=== PATIENT | female | born 1980 | race Caucasian/White ===

== ENCOUNTER 2018-03-10 08:33 | Inpatient (IN) | payer BC ==
[2018-03-10] MEDS ORDERED: HEPARIN SODIUM,PORCINE 5,000 UNIT/ML 1 ML VIAL IV ONE (08:36)
[2018-03-10] MEDS ORDERED: NITROGLYCERIN SL TABS 0.4 MG TAB SUBLINGUAL STA (08:36)
[2018-03-10] MEDS ORDERED: SODIUM CHLORIDE 0.9% 500 ML 500 ML IV STA (08:36)
[2018-03-10] MEDS: ATORVASTATIN 80 MG TAB PO STA ×2 (08:42→08:43)
--- NOTE | 2018-03-10 08:43 | ED ---
General Adult HPI - General Stated complaint: stemi Time Seen by Provider: 03/10/18 08:33 Source: RN notes reviewed - History of Present Illness Initial comments: This is a 37-year-old female with past medical history significant for smoking. Patient also has a history of family members who have heart disease. Patient states about 7:15 this morning she started having chest pain which radiated down both arms. Patient states she was mildly short of breath but very nauseated. Patient states she did vomit. Patient states the nitroglycerin seemed to help a little bit with the chest pain but not with the arm pain. Patient states the chest pain however is starting to come back. Patient continues to be nauseated even though she had received Zofran in route. Patient also received aspirin and nitroglycerin in route. Patient denies any similar symptoms in the past. Patient denies any abdominal pain. Patient denies any recent fever chills or cough. Patient denies any recent injury or trauma. - Related Data Allergies Allergy/AdvReac Type Severity Reaction Status Date / Time No Known Allergies Allergy Verified 03/10/18 08:39 Review of Systems ROS Statement: Those systems with pertinent positive or pertinent negative responses have been documented in the HPI. ROS Other: All systems not noted in ROS Statement are negative. General Exam - General Exam Comments Initial Comments: GENERAL: Patient is well-developed and well-nourished. Patient is nontoxic and well- hydrated and is in mild distress. ENT: Neck is soft and supple. No significant lymphadenopathy is noted. Oropharynx is clear. Moist mucous membranes. Neck has full range of motion without eliciting any pain. EYES: The sclera were anicteric and conjunctiva were pink and moist. Extraocular movements were intact and pupils were equal round and reactive to light. Eyelids were unremarkable. PULMONARY: Unlabored respirations. Good breath sounds bilaterally. No audible rales rhonchi or wheezing was noted. CARDIOVASCULAR: There is a regular rate and rhythm without any murmurs gallops or rubs. ABDOMEN: Soft and nontender with normal bowel sounds. No palpable organomegaly was noted. There is no palpable pulsatile mass. SKIN: Skin is clear with no lesions or rashes and otherwise unremarkable. NEUROLOGIC: Patient is alert and oriented x3. Cranial nerves II through XII are grossly intact. Motor and sensory are also intact. Normal speech, volume and content. Symmetrical smile. MUSCULOSKELETAL: Normal extremities with adequate strength and full range of motion. No lower extremity swelling or edema. No calf tenderness. LYMPHATICS: No significant lymphadenopathy is noted PSYCHIATRIC: Normal psychiatric evaluation. Course Vital Signs 03/10/18 03/10/18 08:35 08:45 Pulse Rate 68 70 Respiratory 24 22 Rate Blood Pressure 146/88 125/112 O2 Sat by Pulse 97 99 Oximetry Medical Decision Making - Medical Decision Making Prior to the patient's arrival we spoke with EMS on 2 occasions and they did transmit an EKG was which I sent up to Corinne the nurse practitioner. EKG shows normal sinus rhythm at 64 bpm PA interval 160 QRS is 76 QT interval 410 QTC is 422 per patient's EKG shows ST segment elevation in leads V2 through V6 as well as inferior leads II, III, and F aVF. Family called this a STEMI overhead Dr. Chavez showed up at bedside within 5 minutes and the patient was being prepped to go to the catheterization lab. Patient received nitroglycerin in the emergency department as well as Lipitor and heparin bolus. Critical Care Time Critical Care Time: Yes Total Critical Care Time: 30 Disposition Clinical Impression: ST elevation myocardial infarction (STEMI) Disposition: ADMITTED IP TO THIS HOSP Referrals: Nonstaff,Physician [Primary Care Provider] - 1-2 days Time of Disposition: 08:43
[2018-03-10] MEDS ORDERED: fentaNYL (PF) 50 MCG/ML 2 ML AMP ONE ×2 (08:55→09:20)
--- NOTE | 2018-03-10 08:57 | XR ---
EXAMINATION TYPE: XR chest 1V portable DATE OF EXAM: 03/10/2018 COMPARISON: NONE HISTORY: Chest pain TECHNIQUE: Single frontal view of the chest is obtained. FINDINGS: There is no focal air space opacity, pleural effusion, or pneumothorax seen. The cardiac silhouette size is within normal limits. The osseous structures are intact. IMPRESSION: No acute process.
[2018-03-10] MEDS ORDERED: IV FLUID CONTINUATION 1,000 ML IV ONE (08:59)
[2018-03-10] MEDS ORDERED: MIDAZOLAM 2 MG/2 ML VIAL IVP ONE ×2 (09:03→09:21)
[2018-03-10] MEDS ORDERED: LIDOCAINE 1% (PF) 10MG/ML VIAL SQ ONE ×2 (09:03→09:04)
[2018-03-10] MEDS: fentaNYL (PF) 50 MCG/ML 2 ML AMP IVP ONE ×2 (09:03→09:06)
[2018-03-10 09:04] LABS: Basophils # (A) 0.1 k/uL (0-0.2); Basophils % (A) 1 %; Eosinophils # (A) 0.7 k/uL (0-0.7); Eosinophils % (A) 5 %; HCT 35.8 % (34.0-46.0); HGB 11.4 gm/dL (11.4-16.0); Lymphocytes # (A) 3.8 k/uL (1.0-4.8); Lymphocytes % (A) 26 %; MCH 20.9 pg (25.0-35.0); MCHC 31.9 g/dL (31.0-37.0); MCV 65.6 fL (80.0-100.0); Mean Platelet Volume 6.9; Microcytosis Marked; Monocytes # (A) 0.4 k/uL (0-1.0); Monocytes % (A) 3 %; Neutrophils # (A) 9.3 k/uL (1.3-7.7); Neutrophils % (A) 64 %; Platelet Count 355 k/uL (150-450); RBC 5.46 m/uL (3.80-5.40); RDW 14.4 % (11.5-15.5); WBC 14.5 k/uL (3.8-10.6)
[2018-03-10] MEDS ORDERED: FUROSEMIDE 10 MG/ML 4 ML VIAL ONE (09:04)
[2018-03-10] MEDS ORDERED: FUROSEMIDE 10 MG/ML 4 ML VIAL IV ONE (09:05)
[2018-03-10] MEDS ORDERED: BIVALIRUDIN 250 MG in SODIUM CHLORIDE 0.9% 39 ML IV ONE (09:06)
[2018-03-10] MEDS ORDERED: BIVALIRUDIN BOLUS 250 MG/50 ML IV ONE (09:06)
[2018-03-10 09:13] LABS: INR 0.9 (<1.2); Prothrombin Time 9.8 sec (9.0-12.0)
[2018-03-10] MEDS ORDERED: niCARdipine 25 MG/10 ML VIAL ONE (09:16)
[2018-03-10 09:17] LABS: ALT 24 U/L (9-52); AST 18 U/L (14-36); Albumin 3.9 g/dL (3.5-5.0); Alkaline Phosphatase 56 U/L (38-126); Anion Gap 9 mmol/L; Blood Urea Nitrogen 15 mg/dL (7-17); Calcium 9.2 mg/dL (8.4-10.2); Carbon Dioxide 24 mmol/L (22-30); Chloride 108 mmol/L (98-107); Glucose 158 mg/dL (74-99); Magnesium 1.6 mg/dL (1.6-2.3); Potassium 4.6 mmol/L (3.5-5.1); Sodium 141 mmol/L (137-145); Total Bilirubin 0.6 mg/dL (0.2-1.3)
[2018-03-10] MEDS ORDERED: TICAGRELOR 90 MG TAB ONE (09:19)
[2018-03-10] MEDS ORDERED: fentaNYL (PF) 50 MCG/ML 2 ML AMP IVP ONE (09:21)
[2018-03-10] MEDS ORDERED: TICAGRELOR 90 MG TAB PO ONE (09:21)
[2018-03-10] MEDS: NITROGLYCERIN 1000MCG/10ML SYRINGE INTRACORON ONE ×2 (09:22→09:27)
[2018-03-10 09:26] LABS: Creatine Kinase 57 U/L (30-135)
[2018-03-10 09:28] LABS: Partial Thromboplastin Time 17.7 sec (22.0-30.0)
[2018-03-10] MEDS ORDERED: IOPAMIDOL-370 125ML BTL INJ ONE (09:31)
[2018-03-10 09:38] LABS: Creatine Kinase MB <0.2 ng/mL (0.0-2.4); Troponin I 0.022 ng/mL (0.000-0.034)
[2018-03-10] MEDS ORDERED: IOPAMIDOL-370 100ML BTL INJ ONE (09:48)
[2018-03-10] MEDS ORDERED: NITROGLYCERIN SL TABS 0.4 MG TAB SUBLINGUAL PRN (09:55)
[2018-03-10] MEDS ORDERED: ATROPINE SULFATE 0.1 MG/ML 10ML SYRINGE IV PRN (09:55)
[2018-03-10] MEDS ORDERED: ZOLPIDEM 5 MG TAB PO PRN (09:55)
[2018-03-10] MEDS ORDERED: MAG HYDROX/AL HYDROX/SIMETH 30 ML CUP PO PRN (09:55)
[2018-03-10] MEDS ORDERED: RX INFO: IV CONTRAST WAS GIVEN 1 EACH MISC MISCELLANE PRN (09:55)
--- NOTE | 2018-03-10 09:55 | P.CRDCN ---
History of Present Illness History of present illness: This is Dr. Forde dictating a consult on this patient The patient was interviewed and examined by me IMPRESSION / ASSESSMENT: 37-year-old female with ST elevation MA, anterior stenting to the ER Chest discomfort that started about 7:00 this morning, midsternal radiating through to the back and to the left arm PLAN: Urgent coronary angiography and appropriate intervention Medical treatment patient received aspirin and statins heparin Smoking cessation Tox screen HPI Patient presented with midsternal chest discomfort going of the left arm and through to the back quite severe the start of this morning. The pain first started in her arm She denied any symptoms prior to this no shortness of breath Strong family history of coronary artery disease Current smoker Nondiabetic denies hypertension ROS: No fever chills or rigors, no cough, phlegm or expectoration, no nausea, vomiting or diarrhea, no hematuria, dysuria, no musculoskeletal complaints, no strokes or seizures, no skin lesions. EXAMINATION: Blood pressure 125/88 mmHg pulse rate in the 60s and 70s Breath sounds are clear no rhonchi no crackles Heart sounds are normal no murmurs no gallops no rub Abdomen soft nontender Extremities are warm no edema REVIEW OF LABS, ECG & MEDICAL DATA White count 14,000, hemoglobin 11.4, sodium and potassium are normal kidney function normal first troponin normal liver function normal Past Medical History Past Medical History: No Reported History History of Any Multi-Drug Resistant Organisms: None Reported Past Surgical History: No Surgical Hx Reported Past Psychological History: No Psychological Hx Reported Smoking Status: Current every day smoker Past Alcohol Use History: Occasional Past Drug Use History: None Reported Medications and Allergies Allergies Allergy/AdvReac Type Severity Reaction Status Date / Time No Known Allergies Allergy Verified 03/10/18 08:39 Physical Exam Vitals: Vital Signs Pulse Resp BP Pulse Ox 03/10/18 08:45 70 22 125/112 99 03/10/18 08:35 68 24 146/88 97 Intake and Output 03/09/18 03/10/18 03/10/18 22:59 06:59 14:59 Intake Total 233 Balance 233 Intake: IV 233 Other: Weight 72.575 kg Results 03/10/18 08:43 03/10/18 08:43 Cardiac Enzymes 03/10/18 03/10/18 Range/Units 08:43 08:43 AST 18 (14-36) U/L CK-MB (CK-2) <0.2 (0.0-2.4) ng/mL Troponin I 0.022 (0.000-0.034) ng/mL Coagulation 03/10/18 Range/Units 08:43 PT 9.8 (9.0-12.0) sec APTT 17.7 L (22.0-30.0) sec CBC 03/10/18 Range/Units 08:43 WBC 14.5 H (3.8-10.6) k/uL RBC 5.46 H (3.80-5.40) m/uL Hgb 11.4 (11.4-16.0) gm/dL Hct 35.8 (34.0-46.0) % Plt Count 355 (150-450) k/uL Comprehensive Metabolic Panel 03/10/18 Range/Units 08:43 Sodium 141 (137-145) mmol/L Potassium 4.6 (3.5-5.1) mmol/L Chloride 108 H (98-107) mmol/L Carbon Dioxide 24 (22-30) mmol/L BUN 15 (7-17) mg/dL Creatinine 0.78 (0.52-1.04) mg/dL Glucose 158 H (74-99) mg/dL Calcium 9.2 (8.4-10.2) mg/dL AST 18 (14-36) U/L ALT 24 (9-52) U/L Alkaline Phosphatase 56 (38-126) U/L Total Protein 7.0 (6.3-8.2) g/dL Albumin 3.9 (3.5-5.0) g/dL Current Medications Generic Name Dose Route Start Last Admin Trade Name Freq PRN Reason Stop Dose Admin Heparin Sodium/Sodium Chloride 250 mls @ 8.7 mls/hr 03/10/18 08:45 25,000 unit/ Sodium Chloride IV .Q24H WILMER Protocol 12 UNITS/KG/HR Intake and Output 03/09/18 03/10/18 03/10/18 22:59 06:59 14:59 Intake Total 233 Balance 233 Intake: IV 233 Other: Weight 72.575 kg Patient Weight 03/11/18 06:59 Weight 72.575 kg 03/10/18 08:43 03/10/18 08:43
[2018-03-10] MEDS ORDERED: SODIUM CHLORIDE 0.9% 1,000 ML IV SCH (10:00)
[2018-03-10 10:24] LABS: Glucose,Whole Blood 121 mg/dL (75-99)
[2018-03-10 10:58] VITALS: BMI 27.4
[2018-03-10] MEDS: HEPARIN SOD,PORK IN 0.45% NACL 25,000 UNIT in 0.45% NACL 1 250ML.BAG IV SCH (10:59)
--- NOTE | 2018-03-10 13:50 | P.HPIM ---
History of Present Illness Chief Complaint: Chest pain This is a 37-year-old female without significant past medical history who presented to emergency department due to chest pain. She described chest pain as with the sudden onset early this morning upon waking up, retrosternal pressure and crushing like severe in intensity radiating to her left arm was accompanied by nausea and diaphoresis and shortness of breath. Patient was transferred to emergency department soon of the pain onset and EKG showed ST segment elevation in leads V3 to V6. She was taken emergently to cardiac catheterization and percutaneous intervention was done with stent placement. She is now recovering intensive care unit. She is currently chest pain-free there is no nausea vomiting or any shortness of breath or discomfort. Patient states that she does not have any particular past medical history medical problems. She does not take any home medications. She is a nonsmoker. She notices that or the last couple days she's been having couple of episodes where she'll feel some pain and numbness in both of her arms that food would go away on its own. Denies any orthopnea nausea vomiting abdominal pain like pain or leg swelling. She has very strong family history of coronary artery disease both her parents with coronary artery disease although diagnosed in the later age and the patient. Interestingly patient just came back from skiing where she was undergoing strenuous exercising but without any particular problems. She also started going to the gym recently and exercising again she didn't have any particular problems with that. Review of Systems Constitutional: Patient reports no fever, no chills, no weight changes, no change in appetite Eyes: Patient reports no double vision, no visual changes ENT: Patient reports no rhinorrhea, no post nasal drip, no sore throat Cardiovascular: As per HPI Respiratory: Patient reports no dyspnea, no cough, no wheeze Gastrointestinal: Patient reports no nausea, no vomiting, no constipation, no diarrhea Genitourinary: Patient reports no dysuria, no urinary frequency, no hematuria. Musculoskeletal: Patient reports no unusual joint pain, no joint swelling or weakness. Patient reports no muscular pain. Psychiatric: Patient reports no changes in mood, no sleeping problems. Patient reports no changes in memory. Endocrine: Patient reports no thirst, no polyuria, no cold intolerance, no heat intolerance. Neurological: Patient reports no unusual paresthesias, no seizures, no paresis , no paralysis, no facila droop, no headache. Heme/Lymphatic: Patient reports no easy bruising, no bleeding tendency, no lymphadenopathy. Allergic/ Immunologic: Patient reports no recent allergic reactions or immunologic history. Skin: Patient reports no rashes or unusual lesions. Past Medical History Past Medical History: No Reported History Additional Past Medical History / Comment(s): Headaches, bronchitis, heart murmur as child and told she outgrew it, thinks she may have carpal tunnel syndrome bilateral wrists. History of Any Multi-Drug Resistant Organisms: None Reported Past Surgical History: Heart Catheterization With Stent Additional Past Surgical History / Comment(s): 03/10/18 PCI with stent to LAD, wisdom teeth extractions Past Anesthesia/Blood Transfusion Reactions: No Reported Reaction Date of Last Stent Placement:: 03/10/18 Smoking Status: Current every day smoker - Past Family History Mother Family Medical History: No Reported History Additional Family Medical History / Comment(s): Mother is healthy. Maternal grandmother had a ND at the age of 41 yrs and had problems after, at the age of 60 yrs. Father Family Medical History: Coronary Artery Disease (CAD) Additional Family Medical History / Comment(s): Father has had CABG-3 vessels. He is living. Medications and Allergies Allergies Allergy/AdvReac Type Severity Reaction Status Date / Time No Known Allergies Allergy Verified 03/10/18 08:39 Physical Exam Vitals: Vital Signs Pulse Resp BP Pulse Ox 03/10/18 13:00 71 10 L 120/76 96 03/10/18 12:50 71 14 120/76 96 03/10/18 12:40 68 9 L 128/80 97 03/10/18 12:30 66 15 123/76 97 03/10/18 12:20 69 9 L 123/76 97 03/10/18 12:10 74 11 L 124/76 97 03/10/18 12:00 71 8 L 122/81 98 03/10/18 11:50 72 7 L 122/81 96 03/10/18 11:40 70 11 L 131/83 96 03/10/18 11:30 59 L 13 134/85 97 03/10/18 11:20 66 13 134/85 95 03/10/18 11:10 72 39 H 132/82 96 03/10/18 11:00 58 L 14 116/78 97 03/10/18 10:50 90 14 116/78 96 03/10/18 10:40 69 7 L 116/80 97 03/10/18 10:30 68 5 L 120/83 97 03/10/18 10:20 65 10 L 120/83 97 03/10/18 10:10 69 10 L 138/97 97 03/10/18 10:00 82 03/10/18 08:50 125/112 03/10/18 08:45 70 22 125/112 99 03/10/18 08:40 98 03/10/18 08:37 100 03/10/18 08:35 68 24 146/88 97 Intake and Output 03/09/18 03/10/18 03/10/18 22:59 06:59 14:59 Intake Total 783 Balance 783 Intake: IV 533 Normal Saline 300 Oral 250 Other: Voiding Method Bedpan # Voids 1 Weight 72.575 kg Vital Signs: I have reviewed the vital signs. GENERAL: Well-nourished, Well-developed , no apparent distress, cooperative Eyes: PERRL, extraoculry movements intact, clear conjunctiva Head: : Atraumatic external nose and ears, oropharyngeal mucosa is moist without lesions or exudates Neck: Symmetric, trachea midline, No thyromegaly, no masses or neck vain pulsation, no neck rigidity CVS: +S1/S2, No murmurs or gallops. Peripheral pulses 2+ and equal in all extremities. RESP: Unlabored respiratory effort. Clear to auscultation bilaterally. Abdomen: Bowel sounds present in all 4 quadrants, Soft to palpation, Nontender/ Nondistended, No hepatosplenomegaly, no hernias or masses, no CVA tnderness Musculoskeletal: Extremities w/o deformity, No cyanosis or clubbing, no joint swelling Skin: Warm, Dry. 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, motor strenght 5/5 i upper and lower extremities, no clonus, patellar DTRs 2+ and sympetrical Psych: Awake, Alert, & Oriented (AAO) x3 Appropriate mood and affect Results CBC & Chem 7: 03/10/18 08:43 03/10/18 08:43 Labs: Abnormal Lab Results - Last 24 Hours (Table) 03/10/18 03/10/18 03/10/18 Range/Units 08:43 08:43 08:43 WBC 14.5 H (3.8-10.6) k/uL RBC 5.46 H (3.80-5.40) m/uL MCV 65.6 L (80.0-100.0) fL MCH 20.9 L (25.0-35.0) pg Neutrophils # 9.3 H (1.3-7.7) k/uL APTT 17.7 L (22.0-30.0) sec Chloride 108 H (98-107) mmol/L Glucose 158 H (74-99) mg/dL POC Glucose (mg/dL) (75-99) mg/dL 03/10/18 Range/Units 09:59 WBC (3.8-10.6) k/uL RBC (3.80-5.40) m/uL MCV (80.0-100.0) fL MCH (25.0-35.0) pg Neutrophils # (1.3-7.7) k/uL APTT (22.0-30.0) sec Chloride (98-107) mmol/L Glucose (74-99) mg/dL POC Glucose (mg/dL) 121 H (75-99) mg/dL Thrombosis Risk Factor Assmnt - Choose All That Apply Any of the Below Risk Factors Present?: Yes Each Factor Represents 1 point: Acute ND, Age 41-60 years, Obesity (BMI >25), Oral contraceptives or hormone replacement therapy Other Risk Factors: No Other congenital or acquired thrombophilia - If yes, enter type in comment: No Thrombosis Risk Factor Assessment Total Risk Factor Score: 4 Thrombosis Risk Factor Assessment Level: Moderate Risk Assessment and Plan Plan: This is a 37-year-old female generally healthy with strong family history of coronary artery disease who presented with ST segment elevation myocardial infarction and is status post PCI. Continue usual treatment under supervision and per recommendation from cardiology with blunt the platelet therapy high-dose statin beta kimberly PHUC inhibitor and outpatient cardiac rehabilitation process. Echocardiogram has been ordered. We will check A1c. Current blood glucose slightly elevated could be due to stress hyperglycemia rule out diabetes Lipid panel has been ordered but my not be the most accurate under the circumstances anything recommended to repeat the lipid panel in 6 weeks Microcytosis on the blood work but with hemoglobin within normal levels. We'll recheck hemoglobin in the morning and may add iron studies
[2018-03-10] MEDS: NITROGLYCERIN OINT 1 INCH/GM PACKET TOPICAL SCH (13:51)
[2018-03-10] MEDS ORDERED: ONDANSETRON 4 MG/2 ML VIAL IVP PRN (14:37)
[2018-03-10 14:56] LABS: Reticulocyte % 1.5 % (0.5-2.0)
--- NOTE | 2018-03-10 16:10 | CC ---
CARDIAC CATHETERIZATION REPORT DATE OF SERVICE: March 10, 2018 PERFORMING PHYSICIAN: Richard Pham MD, rubber roller grinder operator. PROCEDURE PERFORMED: 1. Selective right and left coronary angiogram. 2. Left heart catheterization. 3. Aspiration thrombectomy from the LAD with extraction of red thrombus. 4. Successful stenting of the mid LAD using 3.25 x 18 mm Xience drug-eluting stent, which was postdilated using 3.5 mm NC balloon with an excellent angiographic results and reduction of stenosis from 100% to 0%. INDICATION: This is a pleasant 37-year-old female patient with significant family history of coronary artery disease, who presented to the hospital with chest discomfort and was diagnosed with acute anterior ST-elevation myocardial infarction by Dr. Forde. He did recommend proceeding with an emergent heart catheterization. APPROACH: Right common femoral artery. COMPLICATION: None. LEVEL OF SEDATION: Moderate. Sedation length of 40 minutes. Aorta balloon was 48 minutes. PROCEDURE DESCRIPTION: After obtaining informed consent, the patient was brought to the cardiac cath lab radiology technician. The right common femoral artery was cannulated using micropuncture technique, the micropuncture wire passed easily. Then I placed a 6-[place] sheath in the right common femoral artery. After that, I did selective right and left coronary angiogram using JR4 and XB 3 5 LAD. After that I did intervene on the LAD. Please see a separate paragraph for that. Then I did left heart catheterization. The procedure was completed without any complication. SELECTIVE CORONARY ANGIOGRAM: 1. The right coronary artery is a large caliber vessel. It is a dominant vessel. It is angiographically normal. It distally bifurcates into PDA and PLV branches both are angiographically normal. 2. The left main is angiographically normal. It bifurcates into the circumflex and left anterior descending artery. 3. Left circumflex is a large caliber vessel. It is a nondominant vessel. It is angiographically normal as well. It gives rise to 2 obtuse marginal branches both are angiographically normal. 4. The LAD: The proximal LAD is angiographically normal. The mid LAD is 100% occluded by the bifurcation of a large diagonal branch. PCI OF THE LAD: Anticoagulation was initiated using Angiomax. Subsequently I did engage the left main using an XP35 LAD guide. I did wire the LAD and cross the acute total occlusion using a a run-through wire. After that, I did aspiration thrombectomy with extraction of red thrombus from the LAD. After that I did balloon angioplasty using 3.0 x 15 mm balloon before I deployed 3.25 x 18 mm Xience drug-eluting stent where the stent was positioned under fluoroscopy guidance and deployed under 14 atmospheres for 20 seconds. After that, I post dilated the stent using 3.5 mm NC balloon. The final angiogram showed excellent angiographic results and the procedure was completed without any complication. CONCLUSION: 1. Acute anterior ST-elevation myocardial infarction. 2. Acute total occlusion of the mid LAD. 3. Successful stenting of the mid LAD using a drug-eluting stent with an excellent angiographic results. POSTPROCEDURE MANAGEMENT: 1. Dual anti-platelet therapy. 2. Risk factor modifications. 3. Follow up with the patient. MMODL / IJN: [id number] /
[2018-03-10] MEDS: MORPHINE SULFATE 2 MG/ML SYRINGE IVP PRN (16:44)
[2018-03-10 18:00] LABS: Amphetamine Screen,Urine Not Detected (NotDetected); Barbiturate Screen,Urine Not Detected (NotDetected); Benzodiazepines Screen,Urine Not Detected (NotDetected); Cocaine Screen,Urine Not Detected (NotDetected); Methadone Screen, Urine Not Detected (NotDetected); Opiate Screen,Urine Not Detected (NotDetected); Oxycodone Screen, Urine Not Detected (NotDetected); Phencyclidine Screen,Urine Not Detected (NotDetected); Tricyclic Antidepressant,Urine Not Detected (NotDetected); Urn Cannabinoid Scrn Not Detected (NotDetected)
[2018-03-10] MEDS: ATORVASTATIN 80 MG TAB PO SCH (20:32)
[2018-03-10] MEDS: TICAGRELOR 90 MG TAB PO SCH (20:32)
[2018-03-10] MEDS ORDERED: METOPROLOL TARTRATE 25 MG TAB PO SCH (21:00)
[2018-03-11] MEDS: MORPHINE SULFATE 2 MG/ML SYRINGE IVP PRN (00:33)
[2018-03-11] MEDS: NITROGLYCERIN OINT 1 INCH/GM PACKET TOPICAL SCH ×2 (00:34→08:10)
[2018-03-11 05:46] LABS: Basophils # (A) 0.1 k/uL (0-0.2); Basophils % (A) 1 %; Eosinophils # (A) 0.3 k/uL (0-0.7); Eosinophils % (A) 2 %; HCT 35.5 % (34.0-46.0); HGB 11.2 gm/dL (11.4-16.0); Hypochromasia Slight; Lymphocytes # (A) 2.5 k/uL (1.0-4.8); Lymphocytes % (A) 15 %; MCH 20.6 pg (25.0-35.0); MCHC 31.5 g/dL (31.0-37.0); MCV 65.5 fL (80.0-100.0); Mean Platelet Volume 6.5; Microcytosis Marked; Monocytes # (A) 0.7 k/uL (0-1.0); Monocytes % (A) 4 %; Neutrophils # (A) 12.8 k/uL (1.3-7.7); Neutrophils % (A) 77 %; Platelet Count 346 k/uL (150-450); RBC 5.43 m/uL (3.80-5.40); RDW 14.3 % (11.5-15.5); WBC 16.6 k/uL (3.8-10.6)
[2018-03-11 06:00] LABS: Anion Gap 5 mmol/L; Carbon Dioxide 28 mmol/L (22-30); Chloride 106 mmol/L (98-107); Cholesterol 157 mg/dL (<200); Glucose 109 mg/dL (74-99); Potassium 4.1 mmol/L (3.5-5.1); Sodium 139 mmol/L (137-145); Triglycerides 117 mg/dL (<150)
[2018-03-11 06:01] LABS: Blood Urea Nitrogen 13 mg/dL (7-17); Calcium 9.1 mg/dL (8.4-10.2); HDL Cholesterol 52 mg/dL (40-60); LDL Cholesterol,Calculated 82 mg/dL (0-99)
[2018-03-11] MEDS ORDERED: LISINOPRIL 10 MG TAB PO SCH (09:00)
[2018-03-11] MEDS: ASPIRIN 81 MG PO SCH (09:43)
[2018-03-11] MEDS: HEPARIN SOD,PORK IN 0.45% NACL 25,000 UNIT in 0.45% NACL 1 250ML.BAG IV SCH (09:43)
[2018-03-11] MEDS: TICAGRELOR 90 MG TAB PO SCH ×2 (09:43→20:55)
[2018-03-11] MEDS: METOPROLOL TARTRATE 50 MG TAB PO SCH ×2 (09:43→20:54)
[2018-03-11 12:37] LABS: Iron Saturation 15.14 (12.00-45.00)
--- NOTE | 2018-03-11 13:56 | P.PN ---
Subjective Patient is doing well. No chest discomfort dizziness or lightheadedness Access sites have healed well no hematoma no bruising Heart sounds S1-S2 normal there is a soft systolic murmur audible over the precordium Breath sounds are clear Abdomen soft nontender Extended is warm no edema Impression Acute anterior wall infarct mid LAD stenosis status post stenting Maximize medications continue to let her platelet therapy continue statins switched to long-acting beta blockers LV function assessment Objective - Vital Signs Vital signs: Vital Signs Temp 98.6 F 03/11/18 08:00 Pulse 73 03/11/18 10:00 Resp 11 L 03/11/18 08:00 BP 106/67 03/11/18 08:00 Pulse Ox 95 03/11/18 08:00 Intake & Output 03/10/18 03/11/18 03/11/18 18:59 06:59 18:59 Intake Total 1283 0 300 Output Total 0 300 Balance 1283 0 0 Weight 72.575 kg 76.5 kg Intake: IV 1033 0 Normal Saline 800 0 Oral 250 300 Output: Urine 0 300 Other: Voiding Method Toilet Toilet Toilet Bedside Commode # Voids 1 0 1 - Labs CBC & Chem 7: 03/11/18 05:29 03/11/18 05:29 Labs: Abnormal Lab Results - Last 24 Hours (Table) 03/11/18 03/11/18 Range/Units 05:29 05:29 WBC 16.6 H (3.8-10.6) k/uL RBC 5.43 H (3.80-5.40) m/uL Hgb 11.2 L (11.4-16.0) gm/dL MCV 65.5 L (80.0-100.0) fL MCH 20.6 L (25.0-35.0) pg Neutrophils # 12.8 H (1.3-7.7) k/uL Glucose 109 H (74-99) mg/dL
[2018-03-11 14:12] LABS: Hemoglobin A1C 5.7 % (4.0-6.0)
[2018-03-11] MEDS: LISINOPRIL 10 MG TAB PO SCH (16:30)
--- NOTE | 2018-03-11 17:03 | P.PN ---
Subjective Patient was admitted with retrosternal chest pain found to have Stamey in anteroseptal leads and underwent PCI. She is recovering well no chest pain nausea vomiting. REVIEW OF SYSTEMS: CONSTITUTIONAL: No fever or chills HEENT: No changes in vision or voice CARDIOVASCULAR: no chest pain or abnormal heart beats, or any swelling in ankles or feet. RESPIRATORY: No wheezing or coughing. GASTROINTESTINAL: No abdominal pain, no nausea no vomiting no constipation or diarrhea GENITOURINARY: no any urinary urgency, frequency or burning, and there has been no blood in her urine. no flank pain. MUSCULOSKELETAL: She notes full range of motion of all her joints without pain or swelling. NEUROLOGICAL: , no headache. no vision changes, or fainting. No numbness or tingling. Objective - Vital Signs Vital signs: Vital Signs Temp 97.4 F L 03/11/18 11:00 Pulse 74 03/11/18 11:00 Resp 18 03/11/18 11:00 BP 117/73 03/11/18 11:00 Pulse Ox 98 03/11/18 11:00 Intake & Output 03/10/18 03/11/18 03/11/18 18:59 06:59 18:59 Intake Total 1283 0 744 Output Total 0 300 Balance 1283 0 444 Weight 72.575 kg 76.5 kg Intake: IV 1033 0 Normal Saline 800 0 Oral 250 744 Output: Urine 0 300 Other: Voiding Method Toilet Toilet Toilet Bedside Commode # Voids 1 0 1 - Exam Vital Signs: I have reviewed the vital signs. GENERAL: Well-nourished, Well-developed , no apparent distress, cooperative Eyes: PERRL, extraoculry movements intact, clear conjunctiva Head: : Atraumatic external nose and ears, oropharyngeal mucosa is moist without lesions or exudates Neck: Symmetric, trachea midline, No thyromegaly, no masses or neck vain pulsation, no neck rigidity CVS: +S1/S2, No murmurs or gallops. Peripheral pulses 2+ and equal in all extremities. RESP: Unlabored respiratory effort. Clear to auscultation bilaterally. Abdomen: Bowel sounds present in all 4 quadrants, Soft to palpation, Nontender/ Nondistended, No hepatosplenomegaly, no hernias or masses, no CVA tnderness Musculoskeletal: Extremities w/o deformity, No cyanosis or clubbing, no joint swelling Skin: Warm, Dry. No rashes or lesions Neuro: cab driver II-XII grossly intact, motor strenght 5/5 i upper and lower extremities, no clonus, patellar DTRs 2+ and sympetrical Psych: Awake, Alert, & Oriented (AAO) x3 Appropriate mood and affect - Labs CBC & Chem 7: 03/11/18 05:29 03/11/18 05:29 Labs: Abnormal Lab Results - Last 24 Hours (Table) 03/11/18 03/11/18 Range/Units 05:29 05:29 WBC 16.6 H (3.8-10.6) k/uL RBC 5.43 H (3.80-5.40) m/uL Hgb 11.2 L (11.4-16.0) gm/dL MCV 65.5 L (80.0-100.0) fL MCH 20.6 L (25.0-35.0) pg Neutrophils # 12.8 H (1.3-7.7) k/uL Glucose 109 H (74-99) mg/dL Assessment and Plan Plan: 1. STEMI status post PCI Continue DuoNeb therapy statin beta kimberly Increase activity as tolerated Cardiac rehab Discontinue oral contraceptive medications and that was discussed with the patient I advised patient to follow-up with her web marketing strategist regarding mechanical options of contraception Tobacco cessation 2. Microcytosis mild anemia iron stdies stisfactory 3. Leukocytosis Reactive
--- NOTE | 2018-03-11 17:53 | ECHOF ---
Referral Reason:post STEMI MEASUREMENTS -------- HEIGHT: 162.6 cm WEIGHT: 76.2 kg BP: IVSd: 1.3 cm (0.6 - 1.1) LVIDd: 4.3 cm (3.9 - 5.3) LVPWd: 1.4 cm (0.6 - 1.1) IVSs: 1.7 cm LVIDs: 2.7 cm LVPWs: 1.7 cm LAESV Index (A-L): 23.42 ml/m Ao Diam: 2.6 cm (2.0 - 3.7) AV Cusp: 1.2 cm (1.5 - 2.6) LA Diam: 3.6 cm (2.7 - 3.8) MV EXCURSION: 14.924 mm (> 18.000) MV EF SLOPE: 98 mm/s (70 - 150) EPSS: 0.5 cm MV E Jaden: 0.95 m/s MV DecT: 160 ms MV A Jaden: 0.77 m/s MV E/A Ratio: 1.24 RAP: 5.00 mmHg RVSP: 28.70 mmHg FINDINGS -------- Sinus rhythm. This was a technically adequate study. The left ventricular size is normal. There is mild concentric left ventricular hypertrophy. Overa ll left ventricular systolic function is moderately impaired with, an EF between 35 - 40 %. Apical septum LV wall motion is hypokinetic. Septal Hypokinesis Tomales Hypokinesis. The right ventricle is normal in size. The left atrial size is normal. Normal LA size by volume 22+/-6 ml/m2. The right atrial size is normal. The aortic valve is trileaflet, and appears structurally normal. No aortic stenosis or regurgitation. Mild mitral annular calcification present. Mild mitral regurgitation is present. Mild tricuspid regurgitation present. There is no evidence of pulmonary hypertension. The right v entricular systolic pressure, as measured by Doppler, is 28.70mmHg. There is no pulmonic regurgitation present. The aortic root size is normal. There is no pericardial effusion. CONCLUSIONS -------- 1. The left ventricular size is normal. 2. There is mild concentric left ventricular hypertrophy. 3. Apical septum LV wall motion is hypokinetic. 4. Septal Hypokinesis 5. Tomales Hypokinesis. 6. The right ventricle is normal in size. 7. The left atrial size is normal. 8. Normal LA size by volume 22+/-6 ml/m2. 9. The right atrial size is normal. 10. The aortic valve is trileaflet, and appears structurally normal. No aortic stenosis or regurgitat ion. 11. Mild mitral annular calcification present. 12. Mild mitral regurgitation is present. 13. Mild tricuspid regurgitation present. 14. There is no evidence of pulmonary hypertension. 15. The right ventricular systolic pressure, as measured by Doppler, is 28.70mmHg. 16. There is no pulmonic regurgitation present. 17. The aortic root size is normal. 18. There is no pericardial effusion. TURN OUT: Nirali Marin RDCS
[2018-03-11] MEDS: ATORVASTATIN 80 MG TAB PO SCH (20:54)
[2018-03-12 01:29] VITALS: RESP 18
[2018-03-12] MEDS: ASPIRIN 81 MG PO SCH (08:21)
[2018-03-12] MEDS: TICAGRELOR 90 MG TAB PO SCH ×2 (08:21→20:09)
[2018-03-12] MEDS: METOPROLOL TARTRATE 50 MG TAB PO SCH ×2 (08:21→20:08)
--- NOTE | 2018-03-12 08:41 | P.PN ---
Subjective Patient was admitted with retrosternal chest pain found to have Stamey in anteroseptal leads and underwent PCI. She is recovering well no chest pain nausea vomiting. REVIEW OF SYSTEMS: CONSTITUTIONAL: No fever or chills HEENT: No changes in vision or voice CARDIOVASCULAR: no chest pain or abnormal heart beats, or any swelling in ankles or feet. RESPIRATORY: No wheezing or coughing. GASTROINTESTINAL: No abdominal pain, no nausea no vomiting no constipation or diarrhea GENITOURINARY: no any urinary urgency, frequency or burning, and there has been no blood in her urine. no flank pain. MUSCULOSKELETAL: She notes full range of motion of all her joints without pain or swelling. NEUROLOGICAL: , no headache. no vision changes, or fainting. No numbness or tingling. Objective - Vital Signs Vital signs: Vital Signs Temp 99.1 F 03/12/18 04:00 Pulse 75 03/12/18 04:00 Resp 18 03/12/18 04:00 BP 110/53 03/12/18 04:00 Pulse Ox 95 03/12/18 04:00 Intake & Output 03/11/18 03/12/18 03/12/18 18:59 06:59 18:59 Intake Total 744 200 Output Total 300 Balance 444 200 Weight 74.6 kg Intake: Oral 744 200 Output: Urine 300 Other: Voiding Method Toilet Toilet # Voids 2 1 - Exam Vital Signs: I have reviewed the vital signs. GENERAL: Well-nourished, Well-developed , no apparent distress, cooperative Eyes: PERRL, extraoculry movements intact, clear conjunctiva Head: : Atraumatic external nose and ears, oropharyngeal mucosa is moist without lesions or exudates Neck: Symmetric, trachea midline, No thyromegaly, no masses or neck vain pulsation, no neck rigidity CVS: +S1/S2, No murmurs or gallops. Peripheral pulses 2+ and equal in all extremities. RESP: Unlabored respiratory effort. Clear to auscultation bilaterally. Abdomen: Bowel sounds present in all 4 quadrants, Soft to palpation, Nontender/ Nondistended, No hepatosplenomegaly, no hernias or masses, no CVA tnderness Musculoskeletal: Extremities w/o deformity, No cyanosis or clubbing, no joint swelling Skin: Warm, Dry. No rashes or lesions Neuro: jewelry designer II-XII grossly intact, motor strenght 5/5 i upper and lower extremities, no clonus, patellar DTRs 2+ and sympetrical Psych: Awake, Alert, & Oriented (AAO) x3 Appropriate mood and affect - Labs CBC & Chem 7: 03/11/18 05:29 03/11/18 05:29 Assessment and Plan Plan: 1. 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 Microcytosis mild anemia iron stdies stisfactory 3. Leukocytosis Reactive
[2018-03-12] MEDS: LISINOPRIL 10 MG TAB PO SCH (12:03)
--- NOTE | 2018-03-12 15:25 | P.PN ---
Subjective Progress Note Date: 03/12/18 Principal diagnosis: Anterior STEMI This is a pleasant 37-year-old female who presented to the hospital with an acute anterior wall ST elevation myocardial infarction. She was taken to the cardiac catheterization lab where she underwent thrombectomy as well as LAD stenting. EKG continues to show ST elevation in the anterior leads. She was seen and examined this morning, denies any chest pain and breathing overall has been stable. Hemodynamically she is also stable. Blood pressure 98/50 this morning, 110/50. Heart rate in the 60s, 93% on room air. White blood cell count 16.6, hemoglobin 11.2, platelet count 346. Sodium 139, potassium 4.1 , BUN 13, creatinine 0.7. Drug screen was negative. Echocardiogram with Doppler study was performed which revealed an ejection fraction of 35-40%. Objective - Vital Signs Vital signs: Vital Signs Temp 98.2 F 03/12/18 11:48 Pulse 62 03/12/18 11:48 Resp 18 03/12/18 11:48 BP 98/52 03/12/18 11:48 Pulse Ox 93 L 03/12/18 11:48 Intake & Output 03/11/18 03/12/18 03/12/18 18:59 06:59 18:59 Intake Total 744 200 Output Total 300 Balance 444 200 Weight 74.6 kg Intake: Oral 744 200 Output: Urine 300 Other: Voiding Method Toilet Toilet Toilet # Voids 2 1 - Exam PHYSICAL EXAMINATION: GENERAL: 37-year-old female in no acute distress at the time of my examination HEENT: Head is atraumatic, normocephalic. Pupils equal, round. Sclera anicteric. Conjunctiva are clear. Mucous membranes of the mouth are moist. Neck is supple. There is no elevated jugular venous pressure.] bruit is heard. HEART EXAMINATION: Heart S1, S2 normal. No murmur or gallop heard. CHEST EXAMINATION: Lungs are clear to auscultation and precussion. No chest wall tenderness is noted on palpation or with deep breathing. ABDOMEN: Soft, nontender. Bowel sounds are heard. No organomegaly noted. EXTREMITIES: 2+ peripheral pulses with no evidence of peripheral edema and no calf tenderness noted. NEUROLOGIC patient is awake, alert and oriented ?-3. . - Labs CBC & Chem 7: 03/11/18 05:29 03/11/18 05:29 Assessment and Plan Plan: Assessment and plan #1 acute anterior wall myocardial infarction, status post angioplasty and stenting of the LAD with thrombectomy. EKG continues to show ST elevation in the. #2 family history of premature coronary artery disease #3 hyperlipidemia Plan We will continue with current medications. Patient has been instructed to ambulate in the hallway as much as tolerated. We'll repeat an EKG in the morning, plan for possible discharge home on Wednesday if stable. DNP note has been reviewed, I agree with a documented findings and plan of care. Patient was seen and examined.
[2018-03-12] MEDS: ATORVASTATIN 80 MG TAB PO SCH (20:09)
[2018-03-12] MEDS ORDERED: ACETAMINOPHEN TAB 325 MG TAB PO PRN (20:50)
[2018-03-13] MEDS: TICAGRELOR 90 MG TAB PO SCH ×2 (08:30→19:59)
[2018-03-13] MEDS: METOPROLOL TARTRATE 50 MG TAB PO SCH ×2 (08:30→19:59)
[2018-03-13] MEDS: ASPIRIN 81 MG PO SCH (08:30)
[2018-03-13] MEDS: LISINOPRIL 10 MG TAB PO SCH (12:30)
--- NOTE | 2018-03-13 13:07 | P.PN ---
Subjective Progress Note Date: 03/13/18 Principal diagnosis: CP Doing well, no chest pain or shortness of breath. Objective - Vital Signs Vital signs: Vital Signs Temp 98.0 F 03/13/18 11:50 Pulse 61 03/13/18 11:50 Resp 18 03/13/18 11:50 BP 106/54 03/13/18 11:50 Pulse Ox 98 03/13/18 11:50 Intake & Output 03/12/18 03/13/18 03/13/18 18:59 06:59 18:59 Intake Total 640 200 Balance 640 200 Weight 74.9 kg Intake: Oral 640 200 Other: Voiding Method Toilet Toilet # Voids 1 - Exam Constitutional: No acute distress, conversant, pleasant Eyes:Anicteric sclerae, moist conjunctiva, no lid-lag, PERRLA, ENMT: Oropharynx clear, no erythema, exudates Neck: Supple, FROM, no masses, or JVD, No carotid bruits, No thyromegaly Lungs: Clear to auscultation, Clear to percussion, Normal respiratory effort, no accessory muscle use Cardiovascular: Heart regular in rate and rhythm, No murmurs, gallops, or rubs, No peripheral edema Abdominal: Soft, Nontender, no guarding, rebound or rigidity, Normoactive bowel sounds, No hepatomegaly, No splenomegaly, No palpable mass Skin: Normal temperature, tone, texture, turgor, no induration, No subcutaneous nodules, No rash, lesions, No ulcers Extremities: No digital cyanosis, No clubbing, Pedal pulses intact and symmetrical, Radial pulses intact and symmetrical, No calf tenderness Psychiatric: Alert and oriented to person, place and time, appropriate affect, intact judgement Neuro: Muscles Strength 5/5 in all 4 extremities, Sensation to light touch grossly present throughout, Cranial nerves II-XII grossly intact, no focal sensory deficits - Labs CBC & Chem 7: 03/11/18 05:29 03/11/18 05:29 Assessment and Plan Plan: 1. STEMI status post PCI to the LAD Continue DuoNeb therapy statin beta kimberly Cardiac rehab Discussed with cardiology [employer]ER, anticipated discharge in a.m. Discontinue oral contraceptive medications and that was discussed with the patient Tobacco cessation Fasting blood glucose noted to be slightly elevated, despite normal A1c at 5.7 I encouraged the patient to exercise and follow a low carbohydrate diet. She possibly has prediabetes. Needs outpatient follow-up. Continue aspirin, brilinta, beta kimberly, statin 2. DVT prophylaxis Ambulatory Not indicated
--- NOTE | 2018-03-13 16:03 | P.PN ---
Subjective Progress Note Date: 03/13/18 Principal diagnosis: Anterior STEMI This is a pleasant 37-year-old female who presented to the hospital with an acute anterior wall ST elevation myocardial infarction. She was taken to the cardiac catheterization lab where she underwent thrombectomy as well as LAD stenting. EKG continues to show ST elevation in the anterior leads. She was seen and examined this morning, denies any chest pain and breathing overall has been stable. Hemodynamically she is also stable. Blood pressure 98/50 this morning, 110/50. Heart rate in the 60s, 93% on room air. White blood cell count 16.6, hemoglobin 11.2, platelet count 346. Sodium 139, potassium 4.1 , BUN 13, creatinine 0.7. Drug screen was negative. Echocardiogram with Doppler study was performed which revealed an ejection fraction of 35-40%. 03/13/2018 Patient was seen and examined this morning, feeling well, denies any chest pain and breathing overall is stable. An EKG was performed this morning which showed a 9 normal sinus rhythm with some improvement in the anterior ST elevation however there is some remaining ST elevation with biphasic T-wave noted as well. Hemodynamically the patient has remained stable. Objective - Vital Signs Vital signs: Vital Signs Temp 98.0 F 03/13/18 11:50 Pulse 61 03/13/18 11:50 Resp 18 03/13/18 11:50 BP 106/54 03/13/18 11:50 Pulse Ox 98 03/13/18 11:50 Intake & Output 03/12/18 03/13/18 03/13/18 18:59 06:59 18:59 Intake Total 640 440 Balance 640 440 Weight 74.9 kg Intake: Oral 640 440 Other: Voiding Method Toilet Toilet # Voids 1 4 - Exam PHYSICAL EXAMINATION: GENERAL: 37-year-old female in no acute distress at the time of my examination HEENT: Head is atraumatic, normocephalic. Pupils equal, round. Sclera anicteric. Conjunctiva are clear. Mucous membranes of the mouth are moist. Neck is supple. There is no elevated jugular venous pressure.] bruit is heard. HEART EXAMINATION: Heart S1, S2 normal. No murmur or gallop heard. CHEST EXAMINATION: Lungs are clear to auscultation and precussion. No chest wall tenderness is noted on palpation or with deep breathing. ABDOMEN: Soft, nontender. Bowel sounds are heard. No organomegaly noted. EXTREMITIES: 2+ peripheral pulses with no evidence of peripheral edema and no calf tenderness noted. NEUROLOGIC patient is awake, alert and oriented ?-3. . - Labs CBC & Chem 7: 03/11/18 05:29 03/11/18 05:29 Assessment and Plan Plan: Assessment and plan #1 acute anterior wall myocardial infarction, status post angioplasty and stenting of the LAD with thrombectomy. EKG continues to show ST elevation in the. #2 family history of premature coronary artery disease #3 hyperlipidemia Plan We will continue with current medications. Patient has been instructed to ambulate in the hallway as much as tolerated. Plan on discharge home in 24 hours if stable. DNP note has been reviewed, I agree with a documented findings and plan of care. Patient was seen and examined.
[2018-03-13] MEDS: ATORVASTATIN 80 MG TAB PO SCH (19:59)
[2018-03-14] MEDS: METOPROLOL TARTRATE 50 MG TAB PO SCH (09:27)
[2018-03-14] MEDS: ASPIRIN 81 MG PO SCH (09:27)
[2018-03-14] MEDS: LISINOPRIL 10 MG TAB PO SCH (09:27)
[2018-03-14] MEDS: TICAGRELOR 90 MG TAB PO SCH (09:27)
[2018-03-14 10:22] VITALS: BP 115/52; TEMP 98.1
--- NOTE | 2018-03-14 11:36 | P.DS ---
Providers Date of admission: 03/10/18 08:59 Expected date of discharge: 03/14/18 Attending physician: Lena Gamez DO Consults: 03/10/18 09:56 Consult Physician Routine Consulting Provider: [facility] Consult Reason/Comments: Post Interventional patient Do you want consulting provider notified?: Already Contacted Primary care physician: Physician Nonstaff - Discharge Diagnosis(es) (1) ST elevation myocardial infarction (STEMI) Current Visit: Yes Status: Acute Hospital Course: 37-year-old female without significant past medical history who presented to emergency department due to chest pain. She described chest pain as with the sudden onset early this morning upon waking up, retrosternal pressure and crushing like severe in intensity radiating to her left arm was accompanied by nausea and diaphoresis and shortness of breath. Patient was transferred to emergency department soon of the pain onset and EKG showed ST segment elevation in leads V3 to V6. She was taken emergently to cardiac catheterization and percutaneous intervention was done with stent placement. She is now recovering intensive care unit. She is currently chest pain-free there is no nausea vomiting or any shortness of breath or discomfort. Cardiac catheterization showed 100% occlusion of the LAD by the bifurcation of a large diagonal branch. Stent placement was on 03/10/2018. She was monitored until 03/14/2018. Patient was asymptomatic at the time of discharge. Echocardiogram shows EF 35-40% with mild LVH, apical septal LV hypokinesis, septal hypokinesis and apical hypokinesis. Patient was seen and examined prior to discharge. No acute events overnight. She complains of diarrhea. She denies chest pain, shortness of breath or palpitations. General: [non toxic], [no distress], [appears at stated age] Derm: [warm], [dry] Head: [atraumatic], [normocephalic], [symmetric] Eyes: [EOMI], [no lid lag], [anicteric sclera] Mouth: [no lip lesion], [mucus membranes moist] Cardiovascular: [S1S2 reg], [no murmur], [positive DP pulse bilateral], [chest wall non tender to palpation] Lungs: [Decreased BS bilateral], [no rhonchi, no rales] , [no accessory muscle use] Abdominal: [soft], [ nontender to palpation], [no guarding], [no appreciable organomegaly] Ext: [no gross muscle atrophy], [no edema], [no contractures] Neuro: [no focal neuro deficits] Psych: [Alert], [oriented], [appropriate affect] Patient advised dual antiplatelet agents for atleast one year. Will need to continue ASA, Lipitor, Lisinopril, Metoprolol, Brilinta. She is advised to follow up with her primary care provider within 1-2 days of discharge. She is advised to follow up with Cardiology Dr. Forde on 03/18/2018 at 8:45AM. Pertinent Studies: CXR Cardiac cath Echo Procedures: Cardiac cath Patient Condition at Discharge: Stable Plan - Discharge Summary Discharge Rx Participant: No New Discharge Prescriptions: New Aspirin 81 mg PO DAILY #30 chew Atorvastatin [Lipitor] 80 mg PO HS #30 tab Lisinopril [Zestril] 10 mg PO Q24H #30 tab Metoprolol Tartrate [Lopressor] 50 mg PO BID #60 tab Nitroglycerin Sl Tabs [Nitrostat] 0.4 mg SUBLINGUAL Q5M PRN #20 tab PRN Reason: Chest Pain Ticagrelor [Brilinta] 90 mg PO BID #60 tab Discontinued Naproxen Sodium [Aleve] 220 mg PO DAILY PRN PRN Reason: Pain Multivitamin,Therapeutic [Thera] 1 tab PO DAILY Control (Unknown) 1 tab PO DAILY Discharge Medication List Aspirin 81 mg PO DAILY #30 chew 03/14/18 [Rx] Atorvastatin [Lipitor] 80 mg PO HS #30 tab 03/14/18 [Rx] Lisinopril [Zestril] 10 mg PO Q24H #30 tab 03/14/18 [Rx] Metoprolol Tartrate [Lopressor] 50 mg PO BID #60 tab 03/14/18 [Rx] Nitroglycerin Sl Tabs [Nitrostat] 0.4 mg SUBLINGUAL Q5M PRN #20 tab 03/14/18 [Rx ] Ticagrelor [Brilinta] 90 mg PO BID #60 tab 03/14/18 [Rx] Follow up Appointment(s)/Referral(s): Kennedy Forde MD [STAFF PHYSICIAN] - 03/18/18 8:45 am (Wednesday) Nonstaff,Physician [Primary Care Provider] - 1-2 days (Please choose a primary care doctor and make follow up appointment) Patient Instructions/Handouts: *Surgery [facility] - After Heart Catheterization - Lens Polisher Hand Instructions, Left Heart Catheterization (DC) Activity/Diet/Wound Care/Special Instructions: Virgil quesadapon for 30days free in chart with script. Waiting for [facility] to contact CM for allen check. Discharge Disposition: HOME SELF-CARE
--- NOTE | 2018-03-14 12:08 | P.PN ---
Subjective Progress Note Date: 03/14/18 Principal diagnosis: Anterior STEMI This is a pleasant 37-year-old female who presented to the hospital with an acute anterior wall ST elevation myocardial infarction. She was taken to the cardiac catheterization lab where she underwent thrombectomy as well as LAD stenting. EKG continues to show ST elevation in the anterior leads. She was seen and examined this morning, denies any chest pain and breathing overall has been stable. Hemodynamically she is also stable. Blood pressure 98/50 this morning, 110/50. Heart rate in the 60s, 93% on room air. White blood cell count 16.6, hemoglobin 11.2, platelet count 346. Sodium 139, potassium 4.1 , BUN 13, creatinine 0.7. Drug screen was negative. Echocardiogram with Doppler study was performed which revealed an ejection fraction of 35-40%. 03/13/2018 Patient was seen and examined this morning, feeling well, denies any chest pain and breathing overall is stable. An EKG was performed this morning which showed a 9 normal sinus rhythm with some improvement in the anterior ST elevation however there is some remaining ST elevation with biphasic T-wave noted as well. Hemodynamically the patient has remained stable. 03/14/2018 Patient was seen and examined this morning, denied any chest pain, breathing overall has been stable. She does state that she had 4 bowel movements this morning, diarrhea stools. Blood pressure 115/50, heart rate in the 70s to 80s, 90% on room air. White blood cell count 16.6, hemoglobin 11.2, platelet count 346. Sodium 139, potassium 4.1, BUN 13, creatinine 0.7. Objective - Vital Signs Vital signs: Vital Signs Temp 98.1 F 03/14/18 08:00 Pulse 98 03/14/18 08:00 Resp 18 03/14/18 08:00 BP 115/52 03/14/18 08:00 Pulse Ox 98 03/14/18 08:00 Intake & Output 03/13/18 03/14/18 03/14/18 18:59 06:59 18:59 Intake Total 560 240 Balance 560 240 Weight 74.4 kg Intake: Oral 560 240 Other: Voiding Method Toilet Toilet # Voids 4 1 # Bowel Movements 4 - Exam PHYSICAL EXAMINATION: GENERAL: 37-year-old female in no acute distress at the time of my examination HEENT: Head is atraumatic, normocephalic. Pupils equal, round. Sclera anicteric. Conjunctiva are clear. Mucous membranes of the mouth are moist. Neck is supple. There is no elevated jugular venous pressure.] bruit is heard. HEART EXAMINATION: Heart S1, S2 normal. No murmur or gallop heard. CHEST EXAMINATION: Lungs are clear to auscultation and precussion. No chest wall tenderness is noted on palpation or with deep breathing. ABDOMEN: Soft, nontender. Bowel sounds are heard. No organomegaly noted. EXTREMITIES: 2+ peripheral pulses with no evidence of peripheral edema and no calf tenderness noted. NEUROLOGIC patient is awake, alert and oriented ?-3. . - Labs CBC & Chem 7: 03/11/18 05:29 03/11/18 05:29 Assessment and Plan Plan: Assessment and plan #1 acute anterior wall myocardial infarction, status post angioplasty and stenting of the LAD with thrombectomy. EKG continues to show ST elevation in the. #2 family history of premature coronary artery disease #3 hyperlipidemia Plan We will check his stool for C. diff. If negative patient may be able to be discharged home from our perspective. We'll make her a follow-up appointment to see Dr. Forde in the office post discharge. Discharge medications include aspirin 81 mg daily, Lipitor 80 mg daily, lisinopril 10 mg daily, metoprolol 50 mg one tablet by mouth twice a day, Brilinta 90 mg twice a day and sublingual nitroglycerin as needed for chest pain. DNP note has been reviewed, I agree with a documented findings and plan of care. Patient was seen and examined.
[2018-03-14 13:45] VITALS: PULSE 66
== END 2018-03-14 13:45 | disposition home or self-care (01) | DRG 247 ==
LOC: EC 08:33 → 2SICU 08:59 → 3SCARD 03-11 11:53
PROVIDERS: ADMIT Internal Medicine; ATTEND Internal Medicine
PROC: 02C03ZZ Extirpation of Matter from Coronary Artery, One Artery, Percutaneous Approach (ICD-10-PCS; 2018-03-10)
PROC: B2111ZZ Fluoroscopy of Multiple Coronary Arteries using Low Osmolar Contrast (ICD-10-PCS; 2018-03-10)
PROC: 027034Z Dilation of Coronary Artery, One Artery with Drug-eluting Intraluminal Device, Percutaneous Approach (ICD-10-PCS; principal; 2018-03-10 08:55)
PROC: 4A023N7 Measurement of Cardiac Sampling and Pressure, Left Heart, Percutaneous Approach (ICD-10-PCS; 2018-03-10 08:55)
DX: I21.09 ST elevation (STEMI) myocardial infarction involving other coronary artery of anterior wall (principal); I25.10 Atherosclerotic heart disease of native coronary artery without angina pectoris; Z82.49 Family history of ischemic heart disease and other diseases of the circulatory system; Z71.6 Tobacco abuse counseling; F17.210 Nicotine dependence, cigarettes, uncomplicated; E78.5 Hyperlipidemia, unspecified; K08.409 Partial loss of teeth, unspecified cause, unspecified class
CPT/HCPCS: 36415; 71045; 80048; 80053; 80061; 80306; 82550; 82553; 82728; 83036; 83540; 83550; 83735; 84484; 85025; 85045; 85610; 85730; 87324; 93005; 93306; 93458; 96374; 99291; C1874